=== PATIENT | female | born 1995 | race Caucasian/White ===

== ENCOUNTER 2017-03-31 09:01 | Observation (INO) | payer OTHER ==
[2017-03-31 09:13] VITALS: BMI 24.7
[2017-03-31 09:19] VITALS: O2SAT 100
[2017-03-31] MEDS ORDERED: Sodium Chloride 0.9% 1,000 ML IV STA (09:43)
[2017-03-31] MEDS ORDERED: Iohexol 240 (50 ml) ONE (09:51)
[2017-03-31] MEDS ORDERED: Iohexol 350 MG/100 ML VIAL ONE (10:09)
[2017-03-31 10:22] VITALS: TEMP 97.6
[2017-03-31 10:26] LABS: BASO # 0.06 K/mm3 (0.0-2.0); BASO % 0.6 % (0.0-3.0); EOS % 0.4 % (1.5-5.0); GRAN # 7.31 (1.4-6.5); GRAN % 74.8 % (50.0-68.0); LYMPH # 1.8 (1.2-3.4); MEAN CELL VOLUME 78.5 fL (80.0-105.0); MEAN CORPUSCULAR HEMOGLOBIN 26.1 pg (25.0-35.0); MEAN CORPUSCULAR HGB CONC 33.2 g/dl (31.0-37.0); MEAN PLATELET VOLUME 9.7 fl (7.0-11.0); MONO # 0.6 (0.1-0.6); MONO % 6.2 % (1.0-6.0); PLATELET COUNT 354 10^3/uL (120.0-450.0); RBC 4.98 10^6/uL (3.5-6.1); RED CELL DISTRIBUTION WIDTH 12.7 % (11.5-14.5); WHITE BLOOD COUNT 9.8 10^3/ul (4.5-11.0)
[2017-03-31 10:32] LABS: URINE BILIRUBIN NEGATIVE (NEGATIVE); URINE BLOOD SMALL (NEGATIVE); URINE GLUCOSE (UA) NEGATIVE (NEGATIVE); URINE LEUKOCYTE ESTERASE NEGATIVE Leu/uL (NEGATIVE); URINE NITRATE NEGATIVE (NEGATIVE); URINE PROTEIN TRACE mg/dL (<30 mg/dL); URINE UROBILINOGEN 0.2 E.U./dL (<1 E.U./dL)
[2017-03-31 10:36] LABS: INR 1.04 (0.93-1.08); PARTIAL THROMBOPLASTIN TIME 25.2 Seconds (23.7-30.8); PROTHROMBIN TIME 11.2 Seconds (9.9-11.8); URINE APPEARANCE CLEAR (CLEAR); URINE COLOR YELLOW (YELLOW)
[2017-03-31 10:37] LABS: ALB/GLOB RATIO 1.3 (1.1-1.8); ALBUMIN 5.1 g/dL (3.0-4.8); ALT/SGPT 31 U/L (7-56); AST/SGOT 33 U/L (15-39); BLOOD UREA NITROGEN 10 mg/dL (7-21); CALCIUM 9.9 mg/dL (8.4-10.5); GFR AFRICAN-AMERICAN > 60; GFR NON-AFRICAN AMERICAN > 60; LIPASE 87 U/L (23-300)
[2017-03-31 10:53] LABS: URINE BACTERIA FEW (NEG)
--- NOTE | 2017-03-31 12:01 | ED PDOC ---
Arrival/HPI - General Chief Complaint: Abdominal Pain Time Seen by Provider: 03/31/17 09:33 Historian: Patient - History of Present Illness Narrative History of Present Illness (Text): 03/31/17 09:35 Sarai Miller is a 21 year old female, who reports to the Emergency department complaining of right lower abdominal pain since yesterday. She reports that the pain is constant, has nausea, vomiting x3, chills, and body aches. Patient denies chest pain, shortness of breath, headache, fever, cough, diarrhea, changes in bowel habits, dysuria, hematuria, frequency, flank pain, vaginal discharge, or other complaints. Time/Duration: 24 hours Symptom Onset: Sudden Symptom Course: Unchanged Modifying Factors (Text): pain with palpation on right lower region of abdomen Associated Symptoms (Text): nausea, vomiting x3, chills, and body aches Past Medical History - Provider Review Nursing Documentation Reviewed: Yes - Psychiatric Hx Substance Use: No Family/Social History - Physician Review Nursing Documentation Reviewed: Yes Family/Social History: Unknown Family HX Smoking Status: Never Smoked Hx Alcohol Use: No Hx Substance Use: No Allergies/Home Meds Allergies/Adverse Reactions: Allergies No Known Allergies Allergy (Verified 03/31/17 09:58) Review of Systems - Physician Review All systems were reviewed & negative as marked: Yes - Review of Systems Constitutional: Other (chills). absent: Fevers Respiratory: absent: SOB Gastrointestinal: Abdominal Pain (right lower region), Nausea, Vomiting (three times) Musculoskeletal: absent: Back Pain Neurological: absent: Headache Physical Exam Vital Signs Reviewed: Yes Vital Signs Temp Pulse Resp BP Pulse Ox 03/31/17 15:00 69 18 109/65 100 03/31/17 13:29 72 17 107/62 100 03/31/17 10:20 97.6 F 87 17 124/75 100 03/31/17 09:18 97.7 F 70 18 115/80 100 Temperature: Afebrile Blood Pressure: Normal Pulse: Regular Respiratory Rate: Normal Appearance: Positive for: Well-Appearing, Non-Toxic, Comfortable Pain Distress: None Mental Status: Positive for: Alert and Oriented X 3 - Systems Exam Head: Present: Atraumatic, Normocephalic Pupils: Present: PERRL Extroacular Muscles: Present: EOMI Conjunctiva: Present: Normal Mouth: Present: Moist Mucous Membranes Neck: Present: Normal Range of Motion Respiratory/Chest: Present: Clear to Auscultation, Good Air Exchange. No: Respiratory Distress, Accessory Muscle Use Cardiovascular: Present: Regular Rate and Rhythm, Normal S1, S2. No: Murmurs Abdomen: Present: Tenderness (RLQ), Normal Bowel Sounds, McBurney's Point Tender ((+)). No: Distention, Peritoneal Signs Genitourinary/Pelvic Exam: Present: Other (Patient is being differed a pelvic exam due to being a virgin) Back: Present: Normal Inspection Upper Extremity: Present: Normal Inspection. No: Cyanosis, Edema Lower Extremity: Present: Normal Inspection. No: Edema Neurological: Present: GCS=15, CN II-XII Intact, Speech Normal Skin: Present: Warm, Dry, Normal Color. No: Rashes Psychiatric: Present: Alert, Oriented x 3, Normal Insight, Normal Concentration Medical Decision Making ED Course and Treatment: 03/31/17 09:35 Impression: 21 year old female with RLQ pain. Differential Diagnosis included but are not limited to: secondary appendicitis vs. ovarian pathology vs renal colic Plan: --CT abdomen and pelvis with PO and IV contrast -- Pelvis Ultrasound -- Urinalysis -- Toradol, Zofran, and Sodium Chlroide -- Reassess and disposition - Lab Interpretations Lab Results: 03/31/17 10:04 03/31/17 10:04 Lab Results 03/31/17 10:04: Sodium 140, Potassium 3.8, Chloride 103, Carbon Dioxide 24, Anion Gap 17, BUN 10, Creatinine 0.7, Est GFR ( Amer) > 60, Est GFR (Non- Af Amer) > 60, Random Glucose 97, Calcium 9.9, Total Bilirubin 1.1, AST 33, ALT 31, Alkaline Phosphatase 79, Total Protein 8.9 H, Albumin 5.1 H, Globulin 3.8, Albumin/Globulin Ratio 1.3, Lipase 87 03/31/17 10:04: Urine Color Yellow, Urine Appearance Clear, Urine pH 6.0, Ur Specific Bevier 1.025, Urine Protein Trace H, Urine Glucose (UA) Negative, Urine Ketones Negative, Urine Blood Small H, Urine Nitrate Negative, Urine Bilirubin Negative, Urine Urobilinogen 0.2, Ur Leukocyte Esterase Negative, Urine RBC 2 - 5, Urine WBC 1 - 3, Ur Epithelial Cells 4 - 5, Urine Bacteria Few 03/31/17 10:04: PT 11.2, INR 1.04, APTT 25.2 03/31/17 10:04: WBC 9.8, RBC 4.98, Hgb 13.0, Hct 39.1, MCV 78.5 L, MCH 26.1, MCHC 33.2, RDW 12.7, Plt Count 354, MPV 9.7, Gran % 74.8 H, Lymph % (Auto) 18.0 L, [place] % (Auto) 6.2 H, Eos % (Auto) 0.4 L, Baso % (Auto) 0.6, Gran # 7.31 H, Lymph # 1.8, [place] # 0.6, Eos # 0.0, Baso # 0.06 I have reviewed the lab results: Yes - RAD Interpretation Radiology Orders: 03/31/17 09:43 ABD PELVIS PO & IV CONTRAST [CT] Stat 03/31/17 09:45 PELVIS ULTRASOUND [US] Routine Attendant Coin Operated Laundry: Radiologist - Medication Orders Current Medication Orders: Discontinued Medications Acetaminophen (Tylenol 325mg Tab) 650 mg PO STAT STA Stop: 03/31/17 12:42 Last Admin: 03/31/17 12:55 Dose: 650 mg Sodium Chloride (Sodium Chloride 0.9%) 1,000 mls @ 1,000 mls/hr IV .Q1H STA Stop: 03/31/17 10:42 Last Admin: 03/31/17 10:00 Dose: 1,000 mls/hr Iohexol (Omnipaque 240 (50 Ml)) Confirm Administered Dose 50 ml .ROUTE .STK-MED ONE Stop: 03/31/17 09:52 Iohexol (Omnipaque 350 100 Ml) Confirm Administered Dose 350 mg .ROUTE .STK-MED ONE Stop: 03/31/17 10:10 Ketorolac Tromethamine (Toradol) 30 mg IVP STAT STA Stop: 03/31/17 09:44 Last Admin: 03/31/17 09:59 Dose: 30 mg Ondansetron HCl (Zofran Inj) 4 mg IVP STAT STA Stop: 03/31/17 09:44 Last Admin: 03/31/17 09:59 Dose: 4 mg Tamsulosin HCl (Flomax) 0.4 mg PO STAT STA Stop: 03/31/17 12:42 Last Admin: 03/31/17 12:54 Dose: 0.4 mg ED OBSERVATION Discharge: Yes Date of observation admission: 03/31/17 Time of observation admission: 09:35 - Observation admission statement Patient is being placed in observation because:: Patient is being observed for right lower abdominal pain. - Goals of Observation Goals of observation are:: To relief and treat abdominal pain for discharge - Progress Note Progress Note: 03/31/17 09:35 Patient is currently being observed and the following plans will be provided: --CT abdomen and pelvis with PO and IV contrast -- Pelvis Ultrasound -- Urinalysis -- Toradol, Zofran, and Sodium Chlroide 03/31/17 12:[address]: Creator : Marylou Carbajal MD FINDINGS: LOWER THORAX: No visible consolidation, pleural effusion, or pneumothorax. LIVER: Unremarkable. GALLBLADDER AND BILE DUCTS: Contracted gallbladder appears grossly unremarkable. PANCREAS: Unremarkable. SPLEEN: Unremarkable. ADRENALS: Unremarkable. KIDNEYS AND URETERS:4 mm obstructing distal right ureteral calculus with proximal hydronephrosis and hydroureter (series 2, image 148). 2 mm nonobstructing left renal calculus. 2 mm nonobstructing left renal calculus. Mild fullness of the left renal pelvis without evidence of obstructing calculus. The kidneys enhance symmetrically. BLADDER: The urinary bladder appears unremarkable. REPRODUCTIVE: Uterus is present. 1.5 cm right adnexal cystic lesion, favored to reflect an ovarian cyst. APPENDIX: Limited visualization of what is presumed to reflect the appendix appears within normal limits of caliber. BOWEL: The stomach is nondistended. The bowel loops appear within normal limits of caliber without evidence of intestinal obstruction. PERITONEUM: No significant free fluid. No definite free air. LYMPH NODES: No bulky lymphadenopathy identified. VASCULATURE: No aortic aneurysm. BONES: No acute osseous abnormality is detected. OTHER FINDINGS: None. IMPRESSION:4 mm obstructing distal right ureteral calculus with proximal hydronephrosis and hydroureter. 2 mm nonobstructing left renal calculus. Mild fullness of left renal pelvis without evidence of obstructing calculus. 1.5 cm right adnexal cystic lesion, favored to reflect an ovarian cyst. Recommend pelvic CT for further evaluation. Limited visualization of what is presumed to reflect the appendix appears within normal limits of caliber. Correlate clinically. 03/31/17 13:25 Ultrasound Pelvis: Creator : Michelle Perez V. FINDINGS: UTERUS: Measures 8.2 x 3.3 x 5.8 cm. Normal in size and appearance. Anteverted. No fibroid or other mass lesion seen. ENDOMETRIUM: Measures 3.7 mm in diameter. Unremarkable. CERVIX: No cervical abnormality identified. RIGHT OVARY: Measures 2.9 x 1.6 x 1.7 cm. No solid mass. Normal flow. Incidental 1.6 cm round benign/ physiologic appearing follicle LEFT OVARY: Measures 2.9 x 1.5 x 1.4 cm. No solid mass. FREE FLUID: Trace fluid in cul-de-sac OTHER FINDINGS:None. IMPRESSION: Normal appearing right ovarian follicle - 1.6 cm. Trace physiologic appearing fluid in the cul-de-sac. No suspect pathology 03/31/17 15:00 Patient no longer has pain. She's not sure if she passed the stone when she went to the bathroom. CT shows kidney stones. WBC nl. UA negative for UTI. Renal function normal. Discussed case with Dr. Ying who is covering Urology who states that patient can follow up with him today. Patient states she will follow up and has family at bedside who will take her there and home. She appears very comfortable and reiterates plan of care. - Scribe Statement The provider has reviewed the documentation as recorded by the Scribe 03/31/2017 Kaceylois Walton Provider Scribe Attestation: All medical record entries made by the Scribe were at my direction and personally dictated by me. I have reviewed the chart and agree that the record accurately reflects my personal performance of the history, physical exam, medical decision making, and the department course for this patient. I have also personally directed, reviewed, and agree with the discharge instructions and disposition. Disposition/Present on Arrival - Present on Arrival Any Indicators Present on Arrival: No History of DVT/PE: No History of Uncontrolled Diabetes: No Urinary Catheter: No History of Decub. Ulcer: No History Surgical Site Infection Following: None - Disposition Have Diagnosis and Disposition been Completed?: Yes Diagnosis: Kidney stone Disposition: HOME/ ROUTINE Disposition Time: 15:00 Patient Plan: Discharge Patient Problems: Current Active Problems Problem Status Onset Kidney stone Acute Condition: IMPROVED
--- NOTE | 2017-03-31 12:28 | CT ---
PROCEDURE: CT Abdomen and Pelvis with oral and IV contrast. HISTORY: RLQ abd pain r/o appy COMPARISON: None available. TECHNIQUE: Contiguous axial images of the abdomen and pelvis. Oral and IV contrast was administered. Coronal and Sagittal reformats generated and reviewed. Contrast dose: 100 mL Omnipaque 350 Radiation dose: Total exam DLP = 481.39 mGy-cm. This CT exam was performed using one or more of the following dose reduction techniques: Automated exposure control, adjustment of the mA and/or kV according to patient size, and/or use of iterative reconstruction technique. FINDINGS: LOWER THORAX: No visible consolidation, pleural effusion, or pneumothorax. LIVER: Unremarkable. GALLBLADDER AND BILE DUCTS: Contracted gallbladder appears grossly unremarkable. PANCREAS: Unremarkable. SPLEEN: Unremarkable. ADRENALS: Unremarkable. KIDNEYS AND URETERS: 4 mm obstructing distal right ureteral calculus with proximal hydronephrosis and hydroureter (series 2, image 148). 2 mm nonobstructing left renal calculus. 2 mm nonobstructing left renal calculus. Mild fullness of the left renal pelvis without evidence of obstructing calculus. The kidneys enhance symmetrically. BLADDER: The urinary bladder appears unremarkable. REPRODUCTIVE: Uterus is present. 1.5 cm right adnexal cystic lesion, favored to reflect an ovarian cyst. APPENDIX: Limited visualization of what is presumed to reflect the appendix appears within normal limits of caliber. BOWEL: The stomach is nondistended. The bowel loops appear within normal limits of caliber without evidence of intestinal obstruction. PERITONEUM: No significant free fluid. No definite free air. LYMPH NODES: No bulky lymphadenopathy identified. VASCULATURE: No aortic aneurysm. BONES: No acute osseous abnormality is detected. OTHER FINDINGS: None. IMPRESSION: 4 mm obstructing distal right ureteral calculus with proximal hydronephrosis and hydroureter. 2 mm nonobstructing left renal calculus. Mild fullness of left renal pelvis without evidence of obstructing calculus. 1.5 cm right adnexal cystic lesion, favored to reflect an ovarian cyst. Recommend pelvic CT for further evaluation. Limited visualization of what is presumed to reflect the appendix appears within normal limits of caliber. Correlate clinically.
--- NOTE | 2017-03-31 13:27 | US ---
HISTORY: rlq abd pain r/o ovarian pathology COMPARISON: CT abdomen and pelvis 03/31/2017 TECHNIQUE: Transabdominal and transvaginal FINDINGS: UTERUS: Measures 8.2 x 3.3 x 5.8 cm. Normal in size and appearance. Anteverted. No fibroid or other mass lesion seen. ENDOMETRIUM: Measures 3.7 mm in diameter. Unremarkable. CERVIX: No cervical abnormality identified. RIGHT OVARY: Measures 2.9 x 1.6 x 1.7 cm. No solid mass. Normal flow. Incidental 1.6 cm round benign/ physiologic appearing follicle LEFT OVARY: Measures 2.9 x 1.5 x 1.4 cm. No solid mass. FREE FLUID: Trace fluid in cul-de-sac OTHER FINDINGS: None. IMPRESSION: Normal appearing right ovarian follicle - 1.6 cm. Trace physiologic appearing fluid in the cul-de-sac No suspect pathology
[2017-03-31 15:30] VITALS: BP 109/65; PULSE 69; RESP 18
== END 2017-03-31 17:37 | disposition home or self-care (01) ==
LOC: ED 09:01 → EROBSV 11:08
PROVIDERS: ADMIT Emergency Medicine; ATTEND Emergency Medicine
DX: N20.0 Calculus of kidney (principal)
CPT/HCPCS: 74177; 76856; 80053; 81001; 83690; 85025; 85610; 85730; 87086; 96374; 96375; 99284; G0378; J1885; J2405; J7040; Q9966; Q9967

== ENCOUNTER 2018-12-12 07:00 | Emergency (ER) | payer OTHER ==
[2018-12-12 07:18] VITALS: BMI 27.8
[2018-12-12 07:22] VITALS: RESP 18; O2SAT 100
[2018-12-12] MEDS ORDERED: Sodium Chloride 0.9% 1,000 ML IV STA (07:31)
--- NOTE | 2018-12-12 07:32 | ED PDOC ---
Arrival/HPI - General Historian: Patient - History of Present Illness Narrative History of Present Illness (Text): 12/12/18 07:31 Patient is a 23yo F with PMH of kidney stones presenting to ED with left sided abdominal pain since 3am this morning. She reports intense 10/10 pain that starts in the flank region and radiates to the lower left quadrant. She reports abrupt onset with associated nausea, NB/NB vomiting, thin stools, and dysuria. She denies blood in vomitus, stool, or urine. She reports pain feels like prior episode of stones in 2017. Pt tried taking pepto bismol at home with no relief. She denies fever, chills, chest pain, shortness of breath, sick contacts, or recent travel. <Mayuri Chatman - Last Filed: 12/12/18 11:09> <Jerome Dias - Last Filed: 12/12/18 14:42> - General Chief Complaint: Abdominal Pain Time Seen by Provider: 12/12/18 07:11 Past Medical History - Infectious Disease Hx of Infectious Diseases: None - Renal Hx Kidney Stones: Yes - Psychiatric Hx Substance Use: No - Past Surgical History Past Surgical History: No Previous <Mayuri Chatman - Last Filed: 12/12/18 11:09> - Provider Review Nursing Documentation Reviewed: Yes <Jerome Dias - Last Filed: 12/12/18 14:42> Family/Social History Narrative Family History (Free Text): 12/12/18 07:39 father - HTN, kidney stones Smoking Status: Never Smoked Hx Alcohol Use: No Hx Substance Use: No <Mayuri Chatman - Last Filed: 12/12/18 11:09> - Physician Review Nursing Documentation Reviewed: Yes Family/Social History: No Known Family HX <Jerome Dias - Last Filed: 12/12/18 14:42> Allergies/Home Meds <Mayuri Chatman - Last Filed: 12/12/18 11:09> <Jerome Dias - Last Filed: 12/12/18 14:42> Allergies/Adverse Reactions: Allergies No Known Allergies Allergy (Verified 03/31/17 09:58) Review of Systems - Review of Systems Constitutional: absent: Fevers Respiratory: absent: SOB, Cough Cardiovascular: absent: Chest Pain Gastrointestinal: Abdominal Pain, Stool Changes, Nausea, Vomiting. absent: Hematochezia, Hematemesis, Anorexia, Food Intolerance Genitourinary Female: Dysuria Musculoskeletal: Back Pain Skin: absent: Rash Neurological: absent: Headache Endocrine: absent: Diaphoresis Psychiatric: absent: Anxiety, Depression <Mayuri Chatman - Last Filed: 12/12/18 11:09> Physical Exam Vital Signs Temp Pulse Resp BP Pulse Ox 12/12/18 07:01 97.8 F 80 18 111/82 100 - Systems Exam Head: Present: Atraumatic, Normocephalic Pupils: Present: PERRL Extroacular Muscles: Present: EOMI Conjunctiva: Present: Normal Mouth: Present: Moist Mucous Membranes Neck: Present: Normal Range of Motion Respiratory/Chest: Present: Clear to Auscultation, Good Air Exchange. No: Respiratory Distress, Accessory Muscle Use, Wheezes, Rales, Rhonchi Cardiovascular: Present: Regular Rate and Rhythm, Normal S1, S2. No: Murmurs, Rub, Gallop Abdomen: Present: Tenderness, Normal Bowel Sounds. No: Distention, Peritoneal Signs, Rebound, Guarding, McBurney's Point Tender, Rovsing's Sign Present Genitourinary/Pelvic Exam: Present: Other (no suprapubic tenderness) Back: Present: CVA Tenderness (+L side) Upper Extremity: Present: Normal Inspection Lower Extremity: Present: Normal Inspection Neurological: Present: GCS=15, Speech Normal Skin: Present: Normal Color Psychiatric: Present: Alert, Oriented x 3 <Mayuri Chatman - Last Filed: 12/12/18 11:09> Vital Signs Temp Pulse Resp BP Pulse Ox 12/12/18 07:01 97.8 F 80 18 111/82 100 <Jerome Dias - Last Filed: 12/12/18 14:42> Medical Decision Making ED Course and Treatment: 12/12/18 09:20 Patient feeling less pain at this time. UA showing trace blood and +RBCs. 12/12/18 11:07 CT showing 5mm obstructing stone in L distal ureter. Patient reports improved symptoms. Dr. Jacobo Ying called, requests that patient follows up with him in office today. Information given to patient and faxed to office. <Mayuri Chatman - Last Filed: 12/12/18 11:09> ED Course and Treatment: 12/12/18 07:55 In agreement with resident note which contains more details about the patient. Patient seen and evaluated with resident. Came up with plan and treatment together. 23 year old female presents to the ED for evaluation of abdominal, nausea and vomiting. Plan: -- CT Abdomen/Pelvis -- Labs -- IV Fluids -- Toradol -- Tylenol -- Urinalysis 12/12/18 14:41 pt seen with residnet 5mm left side stone no e/o of sepsis. case discussed with dr ying will see pt today. urine5-10 wbc. no urinary symptosm. discussed ua with urology. request no antibiotics at this time. will see pt today. pt adviesd to return to er with anyfever or complaints. - RAD Interpretation Radiology Orders: 12/12/18 07:31 ABD & PELVIS W/O PO OR IV CONT [CT] Stat - Medication Orders Current Medication Orders: Sodium Chloride (Sodium Chloride 0.9%) 1,000 mls @ 1,000 mls/hr IV .Q1H STA Stop: 12/12/18 08:30 Last Admin: 12/12/18 07:43 Dose: 1,000 mls/hr eMAR Start Stop Document 12/12/18 07:43 SRE (Rec: 12/12/18 07:44 SRE [facility] [id number]) Intravenous Solution Start Date 12/12/18 Start Time 07:44 End Date 12/12/18 End time 08:45 Total Infusion Time 61 Discontinued Medications Acetaminophen (Tylenol 325mg Tab) 975 mg PO STAT STA Stop: 12/12/18 07:33 Ketorolac Tromethamine (Toradol) 30 mg IVP STAT STA Stop: 12/12/18 07:33 <Jerome Dias - Last Filed: 12/12/18 14:42> - PA / VP ANCILLARY / Resident Statement / has reviewed & agrees with the documentation as recorded. / has examined the patient and agrees with the treatment plan. - Scribe Statement The provider has reviewed the documentation as recorded by the Samuelibe Quiana Tirado. All medical record entries made by the Samuelibjacobo were at my direction and personal ly dictated by me. I have reviewed the chart and agree that the record accurately reflects my personal performance of the history, physical exam, medical decision making, and the department course for this patient. I have also personally directed, reviewed, and agree with the discharge instructions and disposition. <Jerome Dias - Last Filed: 12/12/18 14:42> Disposition/Present on Arrival - Present on Arrival Any Indicators Present on Arrival: No History of DVT/PE: No History of Uncontrolled Diabetes: No Urinary Catheter: No History of Decub. Ulcer: No History Surgical Site Infection Following: None - Disposition Have Diagnosis and Disposition been Completed?: Yes Disposition Time: 11:10 <Mayuri Chatman - Last Filed: 12/12/18 11:09> <Jerome Dias - Last Filed: 12/12/18 14:42> - Disposition Diagnosis: Kidney stone Disposition: HOME/ ROUTINE Condition: STABLE Discharge Instructions (ExitCare): Kidney Stones in Adults Additional Instructions: please call dr ying he will see you today. reutrn to any er with worsening. Prescriptions: Ibuprofen [Motrin Tab] 600 mg PO Q8 PRN #20 tab PRN Reason: Pain, Severe (8-10) oxyCODONE/Acetaminophen [Percocet 5/325 mg Tab] 1 ea PO Q8 PRN #10 tab PRN Reason: Pain, Severe (8-10) Tamsulosin [Flomax] 0.4 mg PO DAILY #10 cap Referrals: Ken Ying MD [Staff Provider] - Follow up with primary Forms: [employer] ([place])
[2018-12-12 08:06] LABS: BASO # 0.06 K/mm3 (0.0-2.0); BASO % 0.7 % (0.0-3.0); EOS % 0.4 % (1.5-5.0); HEMOGLOBIN 12.1 g/dL (12.0-16.0); LYMPH % 21.8 % (22.0-35.0); MEAN CELL VOLUME 80.5 fl (80.0-105.0); MEAN CORPUSCULAR HEMOGLOBIN 26.2 pg (25.0-35.0); MEAN CORPUSCULAR HGB CONC 32.5 g/dl (31.0-37.0); MEAN PLATELET VOLUME 10.1 fl (7.0-11.0); MONO # 0.5 (0.1-0.6); MONO % 5.5 % (1.0-6.0); RBC 4.62 10^6/uL (3.5-6.1); RED CELL DISTRIBUTION WIDTH 12.3 % (11.5-14.5); WHITE BLOOD COUNT 9.2 10^3/uL (4.5-11.0)
[2018-12-12 08:13] LABS: INR 1.14; PARTIAL THROMBOPLASTIN TIME 34.6 Seconds (26.9-38.3); PROTHROMBIN TIME 12.9 SECONDS (9.4-12.5)
[2018-12-12 08:14] LABS: ALB/GLOB RATIO 1.3 (1.1-1.8); ALBUMIN 4.2 g/dL (3.0-4.8); ALT/SGPT 18 U/L (7-56); AST/SGOT 21 U/L (14-36); BLOOD UREA NITROGEN 14 mg/dL (7-21); CALCIUM 9.5 mg/dL (8.4-10.5); GFR NON-AFRICAN AMERICAN > 60; LIPASE 115 U/L (23-300)
[2018-12-12 09:03] LABS: PH,URINE 5.5 (4.7-8.0); URINE BILIRUBIN NEGATIVE (NEGATIVE); URINE BLOOD TRACE-INTACT (NEGATIVE); URINE GLUCOSE (UA) NEGATIVE (NEGATIVE); URINE LEUKOCYTE ESTERASE TRACE Leu/uL (NEGATIVE); URINE PROTEIN NEGATIVE mg/dL (<30 mg/dL); URINE UROBILINOGEN 0.2 E.U./dL (<1 E.U./dL)
[2018-12-12 09:06] LABS: HCG,QUALITATIVE URINE NEGATIVE (NEGATIVE); URINE APPEARANCE CLEAR (CLEAR); URINE COLOR YELLOW (YELLOW)
[2018-12-12 09:11] LABS: URINE BACTERIA MANY /hpf
--- NOTE | 2018-12-12 10:36 | CT ---
Date of service: 12/12/2018 PROCEDURE: CT Abdomen and Pelvis without intravenous contrast HISTORY: left side flank pain h/o of kidney stone COMPARISON: 03/31/2017 TECHNIQUE: Without contrast.. Contrast dose: 0 Radiation dose: Total exam DLP = 362.0 mGy-cm. This CT exam was performed using one or more of the following dose reduction techniques: Automated exposure control, adjustment of the mA and/or kV according to patient size, and/or use of iterative reconstruction technique. FINDINGS: LOWER THORAX: Unremarkable. LIVER: Unremarkable. No gross lesion or ductal dilatation. GALLBLADDER AND BILE DUCTS: Unremarkable. PANCREAS: Unremarkable. No gross lesion or ductal dilatation. SPLEEN: Unremarkable. ADRENALS: Unremarkable. No mass. KIDNEYS AND URETERS: Left hydroureteronephrosis. 5 mm distal left ureteral obstructing calculus. No right hydronephrosis. No renal mass. No renal calculus. VASCULATURE: Unremarkable. No aortic aneurysm. No aortic atherosclerotic calcification or mural plaque present. BOWEL: Unremarkable. No obstruction. No gross mural thickening. APPENDIX: Not identified. No secondary findings. PERITONEUM: Trace fluid in cul-de-sac common nonspecific. LYMPH NODES: Unremarkable. No enlarged lymph nodes. BLADDER: Nondistended REPRODUCTIVE: Normal uterus BONES: No acute fracture. OTHER FINDINGS: None. IMPRESSION: Obstructing 5 mm distal left ureteral calculus. Left hydroureteronephrosis. No additional abnormality.
[2018-12-12 11:16] VITALS: BP 110/60; PULSE 76; TEMP 98
== END 2018-12-12 11:16 | disposition home or self-care (01) ==
LOC: ED 07:00
DX: N20.0 Calculus of kidney (principal)
CPT/HCPCS: 74176; 80053; 81001; 81025; 83690; 83735; 84703; 85025; 85610; 85730; 87086; 96361; 96374; 99284; J1885; J2405; J7030

== ENCOUNTER → 2018-12-13 | Outpatient (CLI) | payer OTHER | LOC: RAD 11:42 ==

== ENCOUNTER 2018-12-21 19:39 | Inpatient (IN) | payer OTHER ==
[2018-12-21 20:09] VITALS: BMI 28.3
[2018-12-21] MEDS ORDERED: Sodium Chloride 0.9% 1,000 ML IV STA (20:21)
--- NOTE | 2018-12-21 20:25 | ED PDOC ---
Arrival/HPI - General Chief Complaint: Abdominal Pain Time Seen by Provider: 12/21/18 19:41 Historian: Patient - History of Present Illness Narrative History of Present Illness (Text): 12/21/18 20:24 23 year old female, with no significant past medical history, presents to the emergency department complaining of intermittent left-sided abdominal pain that began this afternoon. Patient was recently diagnosed with kidney stone 1 week ago and pain has not relieved since. Patient was told by Dr. Ying to go to the ER for evaluation. Patient denies any fever, chills, chest pain, shortness of breath, nausea, vomiting, diarrhea, urinary symptoms, back pain, neck pain, headache, dizziness, or any other complaints. PMD: Dr. Dougherty Time/Duration: Other (2PM this afternoon) Symptom Onset: Gradual Symptom Course: Intermittent Activities at Onset: Light Context: Home Past Medical History - Provider Review Nursing Documentation Reviewed: Yes - Infectious Disease Hx of Infectious Diseases: None - Renal Hx Kidney Stones: Yes - Psychiatric Hx Substance Use: No - Past Surgical History Past Surgical History: No Previous Family/Social History - Physician Review Nursing Documentation Reviewed: Yes Family/Social History: No Known Family HX Smoking Status: Never Smoked Hx Alcohol Use: No Hx Substance Use: No Allergies/Home Meds Allergies/Adverse Reactions: Allergies No Known Allergies Allergy (Verified 12/21/18 20:12) Review of Systems - Physician Review All systems were reviewed & negative as marked: Yes - Review of Systems Constitutional: absent: Fevers, Other (chills) Respiratory: absent: SOB Cardiovascular: absent: Chest Pain Gastrointestinal: Abdominal Pain. absent: Diarrhea, Nausea, Vomiting Genitourinary Female: absent: Dysuria, Frequency, Hematuria Musculoskeletal: absent: Back Pain, Neck Pain Neurological: absent: Headache, Dizziness Physical Exam Vital Signs Reviewed: Yes Vital Signs Temp Pulse Resp BP Pulse Ox 12/21/18 20:08 97.6 F 88 17 110/68 100 Temperature: Afebrile Blood Pressure: Normal Pulse: Regular Respiratory Rate: Normal Appearance: Positive for: Well-Appearing, Non-Toxic, Comfortable Pain Distress: None Mental Status: Positive for: Alert and Oriented X 3 - Systems Exam Head: Present: Atraumatic, Normocephalic Pupils: Present: PERRL Extroacular Muscles: Present: EOMI Conjunctiva: Present: Normal Mouth: Present: Moist Mucous Membranes Neck: Present: Normal Range of Motion Respiratory/Chest: Present: Clear to Auscultation, Good Air Exchange. No: Respiratory Distress, Accessory Muscle Use Cardiovascular: Present: Regular Rate and Rhythm, Normal S1, S2. No: Murmurs Abdomen: Present: Tenderness (left flank pain). No: Distention, Peritoneal Signs Back: Present: Normal Inspection Upper Extremity: Present: Normal Inspection. No: Cyanosis, Edema Lower Extremity: Present: Normal Inspection. No: Edema Neurological: Present: GCS=15, CN II-XII Intact, Speech Normal Skin: Present: Warm, Dry, Normal Color. No: Rashes Psychiatric: Present: Alert, Oriented x 3, Normal Insight, Normal Concentration Medical Decision Making ED Course and Treatment: 12/21/18 20:25 Impression: 23 year old female presents complaining of left-sided abdominal pain that began this afternoon. Patient recently diagnosed with kidney stone Plan: -- Labs -- Morphine, Rocephin, IV Fluids, Zofran Inj -- Abdomen x-ray -- HCG, Qualit. Urine -- Urinalysis w/ micro -- Reassess and disposition Prior Visits: Notes and results from previous visits were reviewed. Progress Notes: Abdomen x-ray: As read by me, Distal stone. 12/21/18 23:[address] Ying who recommends admission if patient's in persistent pain. Recommends KUB and antibiotics. 12/21/18 23:27 Case discussed with COMPUTER TECHNICAL SUPPORT SPECIALIST of Dr. Dougherty who is aware and agrees with the plan. Accepts patient into her service. 12/22/18 01:11 KUB ?stone distal ureter level coccyx, no change in position from previous. - RAD Interpretation Non Cdl Driver: Radiologist - Medication Orders Current Medication Orders: Sodium Chloride (Sodium Chloride 0.9%) 1,000 mls @ 1,000 mls/hr IV .Q1H STA Stop: 12/21/18 21:20 - Scribe Statement The provider has reviewed the documentation as recorded by the Osiris Saez Provider Scribe Attestation: All medical record entries made by the Scribe were at my direction and personally dictated by me. I have reviewed the chart and agree that the record accurately reflects my personal performance of the history, physical exam, medical decision making, and the department course for this patient. I have also personally directed, reviewed, and agree with the discharge instructions and disposition. Disposition/Present on Arrival - Present on Arrival Any Indicators Present on Arrival: No History of DVT/PE: No History of Uncontrolled Diabetes: No Urinary Catheter: No History of Decub. Ulcer: No History Surgical Site Infection Following: None - Disposition Have Diagnosis and Disposition been Completed?: Yes Diagnosis: Kidney stone Disposition: HOSPITALIZED Disposition Time: 20:00 Condition: STABLE
[2018-12-21] MEDS ORDERED: Morphine 4 mg/ml ISec IVP STA (20:59)
[2018-12-21 21:13] LABS: ALB/GLOB RATIO 1.4 (1.1-1.8); ALBUMIN 4.3 g/dL (3.0-4.8); ALT/SGPT 23 U/L (7-56); AST/SGOT 29 U/L (14-36); BLOOD UREA NITROGEN 9 mg/dL (7-21); CALCIUM 9.5 mg/dL (8.4-10.5); GFR NON-AFRICAN AMERICAN > 60; LIPASE 83 U/L (23-300)
[2018-12-21 21:14] LABS: BASO # 0.05 K/mm3 (0.0-2.0); BASO % 0.4 % (0.0-3.0); EOS # 0.1 (0.0-0.7); EOS % 0.4 % (1.5-5.0); HEMOGLOBIN 11.6 g/dL (12.0-16.0); LYMPH # 2.8 (1.2-3.4); LYMPH % 22.2 % (22.0-35.0); MEAN CELL VOLUME 80.9 fl (80.0-105.0); MEAN CORPUSCULAR HEMOGLOBIN 26.1 pg (25.0-35.0); MEAN CORPUSCULAR HGB CONC 32.3 g/dl (31.0-37.0); MEAN PLATELET VOLUME 10.1 fl (7.0-11.0); MONO # 1.1 (0.1-0.6); MONO % 9.1 % (1.0-6.0); RBC 4.44 10^6/uL (3.5-6.1); RED CELL DISTRIBUTION WIDTH 12.4 % (11.5-14.5); URINE BILIRUBIN NEGATIVE (NEGATIVE); URINE BLOOD NEGATIVE (NEGATIVE); URINE GLUCOSE (UA) NEGATIVE (NEGATIVE); URINE LEUKOCYTE ESTERASE NEGATIVE Leu/uL (NEGATIVE); URINE PROTEIN TRACE mg/dL (<30 mg/dL); URINE UROBILINOGEN 0.2 E.U./dL (<1 E.U./dL); WHITE BLOOD COUNT 12.5 10^3/uL (4.5-11.0)
[2018-12-21 21:17] LABS: INR 1.1; PARTIAL THROMBOPLASTIN TIME 35.8 Seconds (26.9-38.3); PROTHROMBIN TIME 12.2 SECONDS (9.4-12.5); URINE APPEARANCE CLEAR (CLEAR); URINE COLOR YELLOW (YELLOW)
[2018-12-21 21:21] LABS: HCG,QUALITATIVE URINE NEGATIVE (NEGATIVE); URINE BACTERIA FEW /hpf
[2018-12-21] MEDS ORDERED: cefTRIAXone 1 gm 1 GM/100 ML BAG IVPB STA (23:20)
[2018-12-21] MEDS ORDERED: Morphine 2 mg/ml ISec IVP STA (23:38)
[2018-12-22] MEDS ORDERED: HYDROmorphone 2 mg/ml ISec IVP PRN (06:06)
--- NOTE | 2018-12-22 11:03 | CT ---
Date of service: 12/22/2018 PROCEDURE: CT Abdomen and Pelvis without intravenous contrast HISTORY: kidney stone COMPARISON: 12/12/2018 TECHNIQUE: Without contrast.. Contrast dose: Radiation dose: Total exam DLP = 531.72 mGy-cm. This CT exam was performed using one or more of the following dose reduction techniques: Automated exposure control, adjustment of the mA and/or kV according to patient size, and/or use of iterative reconstruction technique. FINDINGS: LOWER THORAX: Unremarkable. LIVER: Unremarkable. No gross lesion or ductal dilatation. GALLBLADDER AND BILE DUCTS: Unremarkable. PANCREAS: Unremarkable. No gross lesion or ductal dilatation. SPLEEN: Unremarkable. ADRENALS: Unremarkable. No mass. KIDNEYS AND URETERS: There is a 4 mm stone in the left UVJ which is unchanged in position from the prior study. There is mild hydronephrosis and hydroureter on the left. There is minimal perinephric stranding. The right kidney is unremarkable. VASCULATURE: Unremarkable. No aortic aneurysm. No aortic atherosclerotic calcification or mural plaque present. BOWEL: Unremarkable. No obstruction. No gross mural thickening. APPENDIX: Unremarkable. Normal appendix. PERITONEUM: There is a small amount of fluid in the cul-de-sac. LYMPH NODES: Unremarkable. No enlarged lymph nodes. BLADDER: Unremarkable. REPRODUCTIVE: Unremarkable. BONES: No acute fracture. OTHER FINDINGS: None. IMPRESSION: There is a 4 mm stone in the left UVJ which is unchanged in position from the prior study. There is mild hydronephrosis and hydroureter on the left. There is minimal perinephric stranding.
[2018-12-22] MEDS: Sodium Chloride 0.9% 1,000 ML IV SCH (13:41)
--- NOTE | 2018-12-22 14:57 | RAD ---
Date of service: 12/21/2018 HISTORY: left side pain h/o of kidney pain COMPARISON: 12/13/2018 TECHNIQUE: Three view obtained. FINDINGS: BOWEL: Normal. No obstruction. No free air. BONES: Normal. OTHER FINDINGS: The small stone identified on previous CT and plain film is unchanged in position in the region of the left UVJ IMPRESSION: As above
--- NOTE | 2018-12-22 21:16 | PN ---
DATE: 12/22/2018 SUBJECTIVE: The patient has been seeing Dr. Ying. I am currently covering for him as he is away. The patient was seen for renal colic. She was sent home. She has been having continued pain and presented back to the emergency room where she was then admitted. Throughout the day today the patient has not been receiving pain medications. She has been feeling well, straining her urine. She has been on fluids. I restarted her on Flomax which she had been taking at home. CT scan was repeated which shows a persistent 4 mm UVJ calculus with mild hydroureteronephrosis. PHYSICAL EXAMINATION: VITAL SIGNS: The patient's vital signs are stable. She has been afebrile. Temperature of 98, pulse of 73, BP 118/66. IMPRESSION AND PLAN: The patient with renal colic, currently not having severe pain. She has no signs or symptoms of infection or sepsis. My recommendation is for the patient to be discharged home on analgesics, Flomax and the patient will follow up next week with Dr. Ying. The patient was recommended to have a stent if the stone did not pass; however, the patient does not want a stent placed. Given the size and position of the stone, I think the patient should be able to pass this spontaneously and I would try to avoid any surgical intervention unless necessary. I have discussed with the patient's nursing if the patient develops any signs or symptoms that warrant urgent surgical intervention, she will need to have a stent placed but again I think the patient should be discharged home and she should be able to pass the stone spontaneously. Saud Mendez MD
[2018-12-23 01:20] LABS: URINE BILIRUBIN NEGATIVE (NEGATIVE); URINE BLOOD NEGATIVE (NEGATIVE); URINE GLUCOSE (UA) NEGATIVE (NEGATIVE); URINE LEUKOCYTE ESTERASE NEGATIVE Leu/uL (NEGATIVE); URINE PROTEIN NEGATIVE mg/dL (<30 mg/dL); URINE UROBILINOGEN 0.2 E.U./dL (<1 E.U./dL)
[2018-12-23 01:22] LABS: URINE APPEARANCE CLEAR (CLEAR); URINE COLOR YELLOW (YELLOW)
--- NOTE | 2018-12-23 02:47 | HP ---
DATE OF EXAM: 12/22/2018 The patient was seen and examined at the bedside on 12/22/2018. CHIEF COMPLAINT: Flank pain, burning with urination. HISTORY OF PRESENT ILLNESS: Ms. Sarai Miller is a 23-year-old female with no significant past medical history, who came to the emergency department complaining of intermittent left-sided abdominal pain and flank pain, beginning on the day of admission. The patient was recently diagnosed with kidney stone one week ago and the pain has not relieved since. The patient was told by Dr. Ying to go to emergency room for evaluation. The patient denies any fever, chills, chest pain, shortness of breath, nausea, vomiting, or diarrhea. Sometimes, burning with urination. No back pain, hematochezia, or hematuria. PAST MEDICAL HISTORY: Kidney stones. FAMILY HISTORY: Father and mother noncontributory. HABITS: Never smoked. No drugs. No ethanol. ALLERGIES: THE PATIENT IS NOT ALLERGIC WITH ANY MEDICATIONS. REVIEW OF SYSTEMS: The patient was seen and examined at the bedside, still complaining about left flank pain. No fever. No chills. No headache. No dizziness. No chest pain. No palpitations. PHYSICAL EXAMINATION: VITAL SIGNS: Temperature 97.6, pulse 88, respiratory rate 17, blood pressure 110/68, and pulse oximetry 100%. HEENT: Head; normocephalic and atraumatic. Eyes; PERRLA. Extraocular muscles are intact. Conjunctivae clear. Nose patent. Mucous membranes moist. NECK: Supple. No carotid bruits. No JVD. No thyromegaly. CHEST: Bilaterally symmetrical. HEART: S1 and S2 positive. LUNGS: Clear to auscultation. ABDOMEN: Soft. Bowel sounds present. No organomegaly. EXTREMITIES: No edema. No cyanosis. NEUROLOGIC: The patient is awake and alert. Moving all four extremities. No focal deficits. LABORATORY DATA: White blood cells 12.5, hemoglobin 11.6, hematocrit 35.9, and platelets 281. Sodium 136, potassium 3.8, BUN 9, creatinine 0.8, and glucose 88. ASSESSMENT AND PLAN: Ms. Sarai Miller is a 23-year-old female with leukocytosis, anemia, and came with flank pain. CAT scan of the abdomen and pelvis done showed there is a 4-mm stone in the left ureterovesical junction, which is unchanged in position from the prior study. There is mild hydronephrosis and hydroureter on the left side. There has been minimal perinephric stranding. We will start the patient on antibiotics, given hydration and pain medication. Seen by Dr. Mendez covering Dr. Ying. The patient with renal colic. Dr. Mendez started Flomax. The patient was recommended to have stent if the stone did not pass; however, the patient does not want the stent placed. Given the size and position of the stone, Dr. Mendez is thinking that the patient should be able to pass this spontaneously, and we will try to avoid any surgical intervention unless necessary. Appreciate Dr. Mendez's input. Discussion done with the patient and patient's family. Gastrointestinal and deep vein thrombosis prophylaxes. Repeat labs. We will follow up. Nithya Dougherty MD MTDD
[2018-12-23 07:54] LABS: IRON 29 ug/dL (45-180)
[2018-12-23 08:03] LABS: % IRON SATURATION 10 % (20-55); TOTAL IRON BINDING CAPACITY 301 ug/dL (265-497)
[2018-12-23] MEDS: cefTRIAXone 1 gm 1 GM/100 ML BAG IVPB SCH (09:29)
[2018-12-23] MEDS: Sodium Chloride 0.9% 1,000 ML IV SCH (09:31)
--- NOTE | 2018-12-23 09:42 | PCM.URO ---
Urology Progress Note - Subjective Flank Pain: Yes (from gu standpoint pt can be discharged) - Objective Lab Results Last 24 Hours: Laboratory Results - last 24 hr 12/23/18 12/23/18 12/23/18 01:05 07:00 07:00 Iron 29 L TIBC 301 % Saturation 10 L Triglycerides 60 Cholesterol 115 L LDL Cholesterol Direct 62 HDL Cholesterol 39 Lipase 83 Urine Color Yellow Urine Appearance Clear Urine pH 6.0 Ur Specific [place] <= 1.005 Urine Protein Negative Urine Glucose (UA) Negative Urine Ketones Negative Urine Blood Negative Urine Nitrate Negative Urine Bilirubin Negative Urine Urobilinogen 0.2 Ur Leukocyte Esterase Negative Intake & Output: Intake & Output 12/22/18 12/23/18 12/23/18 18:59 06:59 18:59 Intake Total 1040 Balance 1040 Intake: Oral 1040 Other: # Voids Urine, Voided 2 # Bowel Movements 0 Vital Signs: Vital Signs - 24 hr 12/22/18 12/22/18 12/23/18 14:00 22:19 06:00 Temperature 98 F 98.7 F 98.7 F Pulse Rate 73 83 63 Respiratory 20 18 20 Rate Blood Pressure 118/66 103/64 104/61 O2 Sat by Pulse 98 97 97 Oximetry
[2018-12-23 12:02] LABS: FOLATE 6.2 ng/mL
--- NOTE | 2018-12-23 20:11 | CP.PCM.CON ---
History of Present Illness - History of Present Illness History of Present Illness: 23 year old female with past medical history of recent diagnosis of nephrolithiasis came to the ED because of on-and-off left sided abdominal and flank pain that started a day ago. She was diagnosed with nephrolithiasis a week ago and has had pain then, and then a day prior to admission. She denies fever or chills, had some nausea, had some dysuria which is not currently present, no headache or dizziness, no chest pain, no SOB, no cough or rhinorrhea, no diarrhea. Urinalysis is suggestive of inflammation, and CT A/P is showing a left sided ureterovesical small stone with minimal perinephric stranding. Infectious Diseases consult is requested to further evaluate and manage. Review of Systems - Review of Systems All systems: reviewed and no additional remarkable complaints except (as per HPI) Past Patient History - Infectious Disease Hx of Infectious Diseases: None - Past Social History Smoking Status: Never Smoked - CARDIAC Hx Cardiac Disorders: No - PULMONARY Hx Respiratory Disorders: No - NEUROLOGICAL Hx Neurological Disorder: No - HEENT Hx HEENT Problems: No - RENAL Hx Kidney Stones: Yes - ENDOCRINE/METABOLIC Hx Endocrine Disorders: No - HEMATOLOGICAL/ONCOLOGICAL Hx Blood Disorders: No - INTEGUMENTARY Hx Dermatological Problems: No - MUSCULOSKELETAL/RHEUMATOLOGICAL Hx Musculoskeletal Disorders: No Hx Falls: No - GASTROINTESTINAL Hx Gastrointestinal Disorders: No - GENITOURINARY/GYNECOLOGICAL Hx Genitourinary Disorders: No - PSYCHIATRIC Hx Substance Use: No - SURGICAL HISTORY Hx Surgeries: No Meds Allergies/Adverse Reactions: Allergies Allergy/AdvReac Type Severity Reaction Status Date / Time No Known Allergies Allergy Verified 12/21/18 20:12 - Medications Medications: Current Medications Hydromorphone HCl (Dilaudid) 2 mg IVP Q6 PRN PRN Reason: Pain, severe (8-10) Ceftriaxone Sodium (Rocephin 1 Gram Ivpb) 1 gm in 100 mls @ 100 mls/hr IVPB DAILY EZE; Protocol Sodium Chloride (Sodium Chloride 0.9%) 1,000 mls @ 100 mls/hr IV .Q10H EZE Last Admin: 12/22/18 13:41 Dose: 100 mls/hr Phenazopyridine HCl (Pyridium) 200 mg PO TID EZE Last Admin: 12/22/18 18:38 Dose: Not Given Tamsulosin HCl (Flomax) 0.4 mg PO DAILY EZE Last Admin: 12/22/18 11:05 Dose: 0.4 mg Physical Exam - Constitutional Appears: Non-toxic, No Acute Distress - Head Exam Head Exam: NORMAL INSPECTION - Respiratory Exam Respiratory Exam: absent: Rales, Rhonchi - Cardiovascular Exam Cardiovascular Exam: +S1, +S2 - GI/Abdominal Exam GI & Abdominal Exam: Soft. absent: Tenderness Results - Vital Signs Recent Vital Signs: Last Vital Signs Temp 98.7 F 12/22/18 22:19 Pulse 83 12/22/18 22:19 Resp 18 12/22/18 22:19 BP 103/64 12/22/18 22:19 Pulse Ox 97 12/22/18 22:19 - Labs Result Diagrams: 12/21/18 20:45 12/21/18 20:45 Assessment & Plan - Assessment and Plan (Free Text) Plan: Assessment Left sided nephrolithiasis R/O UTI Plan started Rocephin and follow up blood and urine cx reviewed CT A/P will check HIV test due to her age will monitor clinically
--- NOTE | 2018-12-24 03:05 | PN ---
DATE: 12/23/2018 SUBJECTIVE: The patient came in with acute abdominal pain, back pain, nausea, vomiting. The patient has a history of kidney stone, UTI. I saw the patient today at bedside. The patient denies chest pain, palpitations, constipation, dysuria, hematuria, did have some left lower quadrant pain. She is medicated at the bedside for pain. PHYSICAL EXAMINATION: VITAL SIGNS: Temperature 98.5, pulse rate 62, blood pressure 117/75, respiratory rate 18, saturating 99% on room air. HEENT: Normocephalic. PERRLA. Mucous membranes moist. NECK: Supple. Normal inspection. RESPIRATORY: Clear to auscultation. No wheeze. No rhonchi. CARDIOVASCULAR: S1 and S2. No murmur. No gallop. ABDOMEN: Slightly distended. Has some left lower quadrant pain. No organomegaly. SKIN: Normal color, intact. No cyanosis. EXTREMITIES: Moving all extremities. NEUROLOGIC: The patient is alert, oriented x3. Cranial nerves II through XII intact. MEDICATIONS: The patient remains on Rocephin 1 g IV piggyback, Dilaudid 2 mg every 6 hours, Pyridium 200 mg, sodium chloride, Flomax. LABORATORY DATA: White blood cell 12, hemoglobin 11.6, hematocrit 35.9. PT 12.2, INR 1.1. Sodium 136, potassium 3.8, BUN 9, creatinine 0.8. ASSESSMENT AND PLAN: This is a 23-year-old female came in with acute abdominal pain, back pain, has a history of kidney stone, hematuria. Urology is on board. She was seen by Dr. Ying. is on board. She was seen by . We will order CBC and CMP. We will monitor pain. We will follow up. Luke Sharma APN Nithya Dougherty MD
--- NOTE | 2018-12-24 04:05 | DS ---
This case was discussed case with Dr. Dougherty, she is in agreement with the plan. HISTORY OF PRESENT ILLNESS: The patient is a 23-year-old female who came into the ER with acute abdominal pain, dysuria, fatigue. She was admitted with kidney pain. Abdominal CT showed kidney stones. REVIEW OF SYSTEMS: I saw the patient today. She was alert and oriented. She was still complaining of left lower quadrant pain. She denies shortness of breath, palpitations, chest denney, hemoptysis, cough, constipation. PHYSICAL EXAMINATION: VITAL SIGNS: Temperature 98.7, pulse rate 63, blood pressure 104/61, respirations 20 and sat 99% on room air. HEENT: Normocephalic. PERRLA. Mucous membranes moist. NECK: Supple. Normal inspection. RESPIRATORY: Clear to auscultation. CARDIOVASCULAR: S1 and S2. Regular rhythm. No murmur, no gallop. GASTROINTESTINAL: Abdomen is soft, some guarding in the lower left quadrant with some tenderness. The patient is having pain there. SKIN: Normal color. ___. No cyanosis. NEUROLOGIC: Alert and oriented x3. Cranial nerves II through XII. No cognitive deficits. MEDICATIONS: The patient is on Rocephin 1 g IV piggyback, Pyridium 200 mg, Flomax 0.4 p.o. daily. LABORATORY DATA: White blood cell count 12.5, hemoglobin 11.6, hematocrit 35.9, but no current CBC. Current chemistries; sodium 136, potassium 3.8, BUN is 9, creatinine 0.8, A1c was 5.4. ASSESSMENT AND PLAN: This is a 23-year-old patient who came in with abdominal pain, kidney stone, left lower quadrant pain. The patient was seen by Nephrology and Urology. The patient may be discharged home if cleared by Urology. The patient is started Flomax 0.4 mg daily. We will follow up with the patient. Luke Sharma APN Nithya Dougherty MD
[2018-12-24 06:53] VITALS: BP 110/60; PULSE 64; RESP 16; TEMP 98.5; O2SAT 99
[2018-12-24 07:38] LABS: HEMOGLOBIN 10.8 g/dL (12.0-16.0); MEAN CELL VOLUME 79.9 fl (80.0-105.0); MEAN CORPUSCULAR HEMOGLOBIN 25.6 pg (25.0-35.0); MEAN PLATELET VOLUME 10.1 fl (7.0-11.0); RBC 4.22 10^6/uL (3.5-6.1); RED CELL DISTRIBUTION WIDTH 12.5 % (11.5-14.5); WHITE BLOOD COUNT 7.5 10^3/uL (4.5-11.0)
[2018-12-24 08:47] LABS: BLOOD UREA NITROGEN 7 mg/dL (7-21); CALCIUM 9.4 mg/dL (8.4-10.5); GFR NON-AFRICAN AMERICAN > 60
[2018-12-24] MEDS: cefTRIAXone 1 gm 1 GM/100 ML BAG IVPB SCH (09:32)
== END 2018-12-24 15:14 | disposition home or self-care (01) | DRG 694 ==
LOC: ED 19:39 → ERH 23:28 → 5RSO 12-22 00:25
PROVIDERS: ADMIT Internal Medicine; ATTEND Internal Medicine
DX: N13.2 Hydronephrosis with renal and ureteral calculous obstruction (principal); D64.9 Anemia, unspecified; D72.829 Elevated white blood cell count, unspecified; R10.32 Left lower quadrant pain